=== PATIENT | female | born 1930 | race Caucasian/White ===

== ENCOUNTER → 2017-10-22 | Outpatient (CLI) | payer MEDICARE, OTHER ==
[2016-12-07 16:28] VITALS: BP 118/77
--- NOTE | 2017-10-22 16:19 | RAD ---
Exam: Right wrist radiograph 10/22/2017 Indication: Wrist pain from fall Comparison: None available Technique: 4 views of the right wrist are provided. Findings: There is no acute fracture or dislocation. No joint space narrowing. No soft tissue swelling. No osseous erosion or soft tissue gas. There is suggestion of diffuse osteopenia. Impression: No acute fracture or dislocation.
--- NOTE | 2017-10-22 16:30 | RAD ---
Left rib series with single view chest 10/22/2017 Indication: Fall with chest pain. Comparison: None available. Technique: Single view of the chest and 2 dedicated views of the left ribs are provided. Findings: The cardiomediastinal silhouette is within normal limits. There are no pleural effusions. There is no pulmonary vascular congestion or pneumothorax. There is interstitial changes at the right lung base which may represent subsegmental atelectasis versus infiltrate. Left chest wall cardiac device is identified with leads projecting over the right atrium and right ventricle. The thoracic aorta is tortuous with moderate atherosclerotic changes. No definite displaced left-sided rib fracture is visualized. There is mild height loss involving the mid thoracic vertebrae without definite acute compression deformity. Impression: 1. Minimal interstitial changes are noted at the lung bases, right greater than left. Findings may represent subsegmental atelectasis versus infiltrate. 2. No acutely displaced left-sided rib fracture is visualized. Of note, the 11th and 12th ribs are poorly visualized.
--- NOTE | 2017-10-23 08:35 | RAD ---
Three-view nasal bone series History: Trauma. Pain. Findings: No fracture of either nasal bone is seen. The nasal septum is midline. The orbital floors are symmetric and intact. IMPRESSION: No acute fracture.
--- NOTE | 2017-10-23 08:38 | RAD ---
Five-view orbit study History: Trauma and facial pain. Findings: The orbital floors are symmetric and intact. The orbits are intact. No opacification or air-fluid levels of the paranasal sinuses are seen. IMPRESSION: No acute fracture.
== END | disposition home or self-care (01) ==
LOC: DXRAD 15:15
DX: M25.531 Pain in right wrist (principal); I70.0 Atherosclerosis of aorta; R07.81 Pleurodynia; R07.89 Other chest pain
CPT/HCPCS: 70150; 70200; 71101; 73110